=== PATIENT | male | born 1990 | race Caucasian/White ===

== ENCOUNTER 2018-10-05 07:53 | Day surgery (SDC) | payer BC ==
[~2018-10-05] VITALS: Ht 180.3 cm; Wt 79.7 kg
[2018-10-05] VITALS (12 sets, daily range): BP systolic 111–127; BP diastolic 62–80; PULSE 60–79; RESP 16–20; Ht 180.3 cm; Wt 79.7 kg
[~2018-10-05 07:53] MED LIST: CEFAZOLIN 2 GM/50 ML (PMX) 50 ML IVPB ONE; OMEP40CA6 PO; SOD CHLORIDE 0.9% 1,000 ML IV SCH
--- NOTE | 2018-10-05 10:48 | PREAC ---
Date/Time of Note Date/Time of Note DATE: 10/05/18 TIME: 10:46 Anesthesia Eval and Record Evaluation Time Pre-Procedure Interview DATE: 10/05/18 TIME: 10:46 Age 28 Sex male NPO: 8 hrs Preoperative diagnosis Cholelithiasis Planned procedure Laparoscopic cholecystectomy Past Medical History Past Medical History: Includes GI: GERD Surgery & Anesthesia Issues No known issue Meds Anticoagulation: No Beta Ann within 24 hr: No Reason Beta Ann not given: Pt. not on B-Ann Reported Medications Omeprazole* (Omeprazole*) 40 Mg Capsule., 40 MG PO DAILY, #30 CAP 10/05/18 Current Medications Sodium Chloride 1,000 ml @ 75 mls/hr [id number] IV Last administered on 10/05/18at 09:46; Admin Dose 75 MLS/HR; Start 10/05/18 at 06:00; Stop 10/05/18 at 23:00 Meds reviewed: Yes Allergies Coded Allergies: No Known Allergies (Verified Allergy, Unknown, 10/05/18) Allergies Reviewed: Yes Labs/Studies Labs Reviewed: Reviewed by anesthesiologist test: N/A Pre-procedure Exam Last vitals Vital Signs Date Temp Pulse Resp B/P (MAP) Pulse Ox O2 O2 Flow FiO2 Time Delivery Rate 10/05/18 97.4 69 16 118/69 99 Room Air 09:56 (85) Airway: Adequate mouth opening Mallampati: Mallampati I Teeth: Normal Lung: Normal Heart: Normal ASA Physical Status ASA physical status: 1 Emergency: None Planned Anesthetic General/MAC: ETT Planned Pain Management Parenteral pain med Pre-operative Attestations Prior to commencing anesthesia and surgery, the patient was re-evaluated, there was verification of: *The patient's identity *The results of appropriate recent lab work and preoperative vital signs *The above evaluation not changing prior to induction *Anesthetic plan, risk benefits, alternative and complications discussed with patient/family; questions answered; patient/family understands, accepts and wishes to proceed. CECILIA BARRERA MD Oct 05, 2018 10:48
[2018-10-05] MEDS ORDERED: BUPIVACAINE 0.25% (MPF) 30 ML INJ ONE (10:55)
[2018-10-05] MEDS ORDERED: ROCURONIUM 50 MG INJ ONE (10:56)
[2018-10-05] MEDS ORDERED: NEOSTIGMINE 3 MG/3 ML SYRINGE ONE ×2 (10:56→11:40)
[2018-10-05] MEDS ORDERED: PROPOFOL 20 ML ONE (10:56)
[2018-10-05] MEDS ORDERED: SUCCINYLCHOLINE CHLORIDE 100 MG/5 ML SYG IV ONE (10:56)
[2018-10-05] MEDS ORDERED: LIDOCAINE 2% (SDV) 5 ML INJ ONE (10:56)
[2018-10-05] MEDS ORDERED: GLYCOPYRROLATE 0.4 MG INJ ONE ×2 (10:56→11:40)
[2018-10-05] MEDS ORDERED: MEPERIDINE 100 MG INJ ONE (10:57)
[2018-10-05] MEDS ORDERED: FENTAnyl 50 MCG/ML VIAL IV PRN ×3 (11:30)
[2018-10-05] MEDS ORDERED: OXYCODONE/ACETAMINOPHEN (5/325) TAB PO PRN ×2 (11:30)
[2018-10-05] MEDS ORDERED: MIDAZOLAM 1 MG/ML 2 ML INJ IV PRN (11:30)
[2018-10-05] MEDS ORDERED: MEPERIDINE 25 MG INJ IV PRN (11:30)
[2018-10-05] MEDS ORDERED: ONDANSETRON 4 MG INJ IV PRN (11:30)
[2018-10-05] MEDS ORDERED: METOCLOPRAMIDE 10 MG INJ IV PRN (11:30)
[2018-10-05] MEDS ORDERED: HYDROmorphONE 1 MG/5 ML IV SYRINGE IV PRN ×3 (11:30)
[2018-10-05] MEDS ORDERED: DIPHENHYDRAMINE 50 MG INJ IV PRN (11:30)
[2018-10-05] MEDS ORDERED: CEFAZOLIN 1 GM INJ ONE (11:40)
[2018-10-05] MEDS ORDERED: ONDANSETRON 4 MG INJ ONE (11:53)
--- NOTE | 2018-10-05 11:56 | OPR ---
Date/Time of Note Date/Time of Note DATE: 10/05/18 TIME: 11:54 Operative Report Procedure Date: Oct 05, 2018 Preoperative Diagnosis symptomatic gallstones Postoperative Diagnosis same Operation/Procedure Performed laparoscopic cholecystectomy Surgeon see signature line Plastic Installer none Anesthesia Type: general Estimated Blood Loss: 10 - 50 ml's Transfusion none Specimen gallbladder Grafts/Implants none Complications none Pt Condition Post Procedure: stable Indications This is a 28-year-old male with symptomatic gallstones. He request surgical excision of his gallbladder. Risks alternatives benefits and personal were discussed the patient. Patient expresses understanding consents to the operation. Procedure Description Patient is taken to the OR and prepped and draped in usual sterile fashion. Surgical timeout was performed. IV antibiotics given. Infraumbilical incision was made transversely with a 15 blade. Dissection with cautery was carried onto the fascia. The fascia was grasped with Mendenhall's and divided with curved Og scissors. 0 Vicryl use this was placed into the fascia. Rendon trocar was introduced. Pneumoperitoneum is established. Mid epigastric 12 mm optical trochars placed under direct visualization. Right upper quadrant upper flank 5 mm optical trochars were placed under direct visualization. Upon initial inspection there is adhesions to gallbladder. The gallbladder is grasped with the fundus and retracted and lateral and cephalad direction. [place] graspers used to dissect out the cystic duct and cystic artery. The critical view was established. The cystic duct is divided with 3 clips proximal and 1 clip distal and the division is performed laparoscopic scissors. Cystic artery was divided to close proximal clip distal and the divisions performed laparoscopic scissors. The gallbladder was taken of the gallbladder bed. Good hemostasis status. The gallbladder is retrieved Endo Catch bag. All ports removed under direct visualization. Skin is closed using skin julius. A tap block was provided by the anesthesiologist at the beginning case. Dry dressings were applied. Rosamaria RIDDLE Oct 05, 2018 11:56
[2018-10-05] MEDS ORDERED: HYDROCODONE/APAP (5/325) TAB PO ONE (12:00)
--- NOTE | 2018-10-05 13:04 | PAC ---
Date/Time of Note Date/Time of Note DATE: 10/05/18 TIME: 13:04 Post-Anesthesia Notes Post-Anesthesia Note Last documented vital signs Vital Signs Date Temp Pulse Resp B/P (MAP) Pulse Ox O2 O2 Flow FiO2 Time Delivery Rate 10/05/18 60 17 116/71 100 Room Air 12:50 (86) 10/05/18 97.8 6.0 12:07 Activity: WNL Respiratory function: WNL Cardiovascular function: WNL Mental status: Baseline Pain reasonably controlled: Yes Hydration appropriate: Yes Nausea/Vomiting absent: Yes Comments BT: 98.1 CECILIA BARRERA MD Oct 05, 2018 13:04
== END 2018-10-05 14:20 | disposition home or self-care (01) ==
LOC: SDS 07:53
PROVIDERS: ATTEND Surgery
DX: K80.10 Calculus of gallbladder with chronic cholecystitis without obstruction (principal); K21.9 Gastro-esophageal reflux disease without esophagitis
CPT/HCPCS: 88304; J0690; J1170; J2175; J2405; J2710